=== PATIENT | male | born 1990 | race Caucasian/White ===

== ENCOUNTER 2019-03-12 10:57 | Outpatient (CLI) | payer OTHER ==
--- NOTE | 2019-03-12 11:25 | ULT ---
Sonogram abdomen complete HISTORY: Upper abdomen pain. FINDINGS: Echogenic stones are present within the dependent portion of the gallbladder lumen. There i s no gallbladder wall thickening or pericholecystic fluid. Common duct is 0.4 cm. Liver is unremarkable without focal mass or intrahepatic biliary dilatation. No free fluid. The spleen, kidney s, and visualized portions of the abdominal aorta, IVC, and pancreas have a normal appearance. IMPRESSION: Cholelithiasis. No evidence of acute biliary obstruction.
== END 2019-03-12 10:58 | disposition home or self-care (01) ==
LOC: SCSULT 10:57
PROVIDERS: ATTEND Family Medicine
DX: R10.11 Right upper quadrant pain (principal); K80.20 Calculus of gallbladder without cholecystitis without obstruction
CPT/HCPCS: 76700

== ENCOUNTER 2019-06-01 08:55 | Outpatient (CLI) | payer OTHER ==
[2019-06-01 10:01] LABS: #Basophils 0.1 thou/uL (0.0-0.2); #Eosinphils 0.1 thou/uL (0.0-0.7); #Monocytes 0.5 thou/uL (0.11-0.59); #Neutrophils 2.2 thou/uL (1.40-6.50); %Basophils 1.2 % (0.0-1.0); %Eosinophils 1.3 % (0.0-10.0); %Lymphocytes 41.5 % (21.0-51.0); %Monocytes 9.9 % (0.0-10.0); %Neutrophils 46.1 % (42.0-75.0); Mean Corpuscular HGB CONC 34.4 g/dL (32.0-36.0); Mean Corpuscular Hemoglobin 32.7 pg (27.0-31.0); Mean Platelet Volume 10.1 fL (7.4-10.4); Platelet Count 144 thou/uL (130-400); RBC Distribution Width 11.6 % (11.5-14.5); Red Blood Cell (RBC) Count 4.29 mill/uL (4.70-6.10); White Blood Cell (WBC) Count 4.9 thou/uL (4.8-10.8)
[2019-06-01 10:14] LABS: ALT (SGPT) 25 U/L (8-55); AST (SGOT) 19 U/L (5-34); Albumin 4.6 g/dL (3.5-5.0); Alkaline Phosphatase 68 U/L (40-150); Anion Gap 9 mmol/L (10-20); BUN (Urea Nitrogen) 17 mg/dL (8.9-20.6); Bilirubin, Direct 0.4 mg/dL (0.1-0.3); Bilirubin, Total 0.9 mg/dL (0.2-1.2); Calc. Creatinine Clearance 0 mL/min (70-130); Calcium 9.3 mg/dL (7.8-10.44); Carbon Dioxide 28 mmol/L (22-29); Chloride 106 mmol/L (98-107); Estimated GFR-MDRD 89; Globulin 2.6 g/dL (2.4-3.5); Glucose 94 mg/dL (70-105); Protein, Total 7.2 g/dL (6.0-8.3); Sodium 139 mmol/L (136-145)
== END 2019-06-01 08:56 | disposition home or self-care (01) ==
LOC: LABBT 08:55
PROVIDERS: ATTEND Surgery
DX: Z01.812 Encounter for preprocedural laboratory examination (principal); K80.20 Calculus of gallbladder without cholecystitis without obstruction
CPT/HCPCS: 80053; 80076; 85025

== ENCOUNTER 2019-06-02 05:57 | Day surgery (SDC) | payer OTHER ==
[2019-06-01 09:13] VITALS: BMI 25.8
[2019-06-02] MEDS ORDERED: Fentanyl 100 MCG/2 ML VIAL ONE (06:41)
[2019-06-02] MEDS ORDERED: Bupivacaine/Epinephrine 0.25% 30 ML VIAL ONE ×2 (07:03→07:46)
[2019-06-02] MEDS ORDERED: Midazolam HCl 2 mg/2 ml Vial ONE (07:06)
[2019-06-02] MEDS ORDERED: cefOXitin 2 GM VIAL ONE ×2 (07:06→07:07)
[2019-06-02] MEDS ORDERED: Sodium Chloride 0.9% 100 ML ONE (07:07)
--- NOTE | 2019-06-02 07:14 | HP ---
CHIEF COMPLAINT: Right upper quadrant abdominal pain. HISTORY OF PRESENT ILLNESS: The patient is a 28-year-old male, who has been having episodic right upper quadrant pain radiating to back, associated with nausea. Ultrasound showed cholelithiasis. 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 PAST SURGICAL HISTORY: None. MEDICATIONS: None. ALLERGIES: NO KNOWN DRUG ALLERGIES. FAMILY HISTORY: Father unknown. Mother had bipolar. SOCIAL HISTORY: He is single. He is an junior accountant. No tobacco. Occasional alcohol. PHYSICAL EXAMINATION: VITAL SIGNS: Height 69, weight 183, body mass index 27.1. GENERAL: Well-developed, well-nourished male, in no apparent distress. HEENT: No jaundice. LUNGS: Clear. HEART: Regular rate and rhythm. ABDOMEN: Soft, nondistended, nontender. No masses or hernias. EXTREMITIES: Good pulses. No pedal edema. ASSESSMENT: Symptomatic cholelithiasis. PLAN: Laparoscopic cholecystectomy. CONSENT: I have discussed planned procedure as well as risk of bleeding, infection, injury to bile duct, injury to bowel, need to open. He understands and gives informed consent. Job ID: [id number]
[2019-06-02] MEDS ORDERED: Meperidine HCl/PF 25 MG/ML VIAL ONE (08:41)
--- NOTE | 2019-06-02 11:43 | OP ---
DATE OF PROCEDURE: 06/02/2019 PREOPERATIVE DIAGNOSIS: Chronic cholecystitis. PROCEDURE PERFORMED: Laparoscopic cholecystectomy. INDICATIONS: A 28-year-old male, who has been having right upper quadrant pain. Ultrasound showed gallstones. FINDINGS: Thickened wall, contracted. There were stones, lot of adhesions to the gallbladder. DESCRIPTION OF PROCEDURE: After informed consent was obtained, the patient was taken to the operating room and given general endotracheal anesthesia. He was placed in the supine position. Abdomen was prepped and draped in usual fashion. Local anesthesia infiltrated subcutaneously and deep, and a subumbilical incision was performed. Subcu divided sharply. The fascia grasped and 2 stay sutures of 0 Vicryl placed in each side of midline. Midline incised. Digital palpation revealed no local adhesions. A blunt 12 mm trocar inserted. Pneumoperitoneum was created to a pressure of 15 mmHg. A 0-degree laparoscope inserted under direct vision. Three 5 mm ports were placed subcostally. Gallbladder was grasped and advanced superiorly. There were a lot of adhesions. These were taken down using blunt and sharp dissection. The peritoneum was opened and the cystic artery, cystic duct, and critical view dissected out. The duct and artery were triply ligated with hemoclips and divided. The gallbladder removed from its fossa utilizing electrocautery. It was placed in an Endosac, removed from the abdomen in the Endosac. Hemostasis assured. Trocars and retractors removed. The fascia closed with interrupted 0 Vicryl suture. Skin closed with interrupted 4-0 Rapide. Dermabond applied. The patient tolerated the procedure well, transferred to Recovery in good condition. Sponge and needle count verified correct x2. Job ID: [id number]
== END 2019-06-02 10:00 | disposition home or self-care (01) ==
LOC: SDC 05:57
PROVIDERS: ATTEND Surgery
PROC: 0FT44ZZ Resection of Gallbladder, Percutaneous Endoscopic Approach (ICD-10-PCS; principal; 2019-06-02)
DX: K80.10 Calculus of gallbladder with chronic cholecystitis without obstruction (principal)
CPT/HCPCS: 88304; J0131; J0694; J2175; J2250; J3010; J3490